=== PATIENT | male | born 1960 | race Hispanic/Latino ===

== ENCOUNTER 2017-01-17 16:49 | Outpatient (CLI) | payer BC ==
--- NOTE | 2017-01-18 09:34 | XRay Report ---
XRAY RIGHT KNEE THREE VIEWS: 01/17/17 16:49:00 CLINICAL: Right knee pain. FINDINGS: Moderately severe osteoarthritis of the medial joint space with narrowing of the joint space and small osteophytes. Irregularity of the medial femoral condyle. Mild osteoarthritis of the lateral joint space. Moderately severe patellofemoral joint osteoarthritis with osteophytes. No fracture or dislocation. No joint effusion. IMPRESSION: Moderately severe osteoarthritis.
== END 2017-01-17 16:50 | disposition home or self-care (01) ==
LOC: XRAY 16:49
PROVIDERS: ATTEND Nurse Practitioner Family
DX: M17.11 Unilateral primary osteoarthritis, right knee (principal)